=== PATIENT | female | born 1935 | race Caucasian/White ===

== ENCOUNTER → 2022-01-04 | Outpatient (CLI) | payer MEDICARE | LOC: RAD 09:51 | PROVIDERS: ATTEND Family Medicine | DX: M75.81 Other shoulder lesions, right shoulder (principal) ==

== ENCOUNTER → 2022-01-22 | Outpatient (CLI) | payer MEDICARE | LOC: RAD 11:34 | PROVIDERS: ATTEND Family Medicine | DX: M25.562 Pain in left knee (principal); M25.561 Pain in right knee ==

== ENCOUNTER → 2022-01-23 | Outpatient (CLI) | payer MEDICARE | LOC: US 07:13 | PROVIDERS: ATTEND Nurse Practitioner Gerontology | DX: M85.88 Other specified disorders of bone density and structure, other site (principal); R74.8 Abnormal levels of other serum enzymes; K76.0 Fatty (change of) liver, not elsewhere classified | CPT/HCPCS: 76700; 77080 ==